=== PATIENT | female | born 1955 | race Caucasian/White ===

== ENCOUNTER 2019-03-08 16:04 | Emergency (ER) | payer OTHER, SELFPAY ==
[2019-03-08 16:13] VITALS: BP 157/76; PULSE 83; RESP 18; TEMP 36.7; O2SAT 94; BMI 29.2
--- NOTE | 2019-03-08 16:13 | DI.RAD.S_ITS ---
PROCEDURE: XR CHEST 1V INDICATIONS: vomiting, DKA TECHNIQUE: One view of the chest was acquired. COMPARISON: [facility], , CHEST 1 VIEW, 08/19/2015, 23:18. FINDINGS: Surgical changes and devices: None. Lungs and pleura: An incomplete inspiratory result is noted, causing a crowded appearance to the lung markings. No focal infiltrates are seen. No pneumothorax or significant pleural effusions are seen. Mediastinum: Mediastinal contours appear normal. Heart size is normal. Bones and chest wall: Age-appropriate bony degenerative changes are seen. No suspicious bony lesions. Overlying soft tissues appear unremarkable. IMPRESSION: Limited portable chest examination, without a significant cardiopulmonary abnormality identified. Dictated by: Cory Caruso M.D. on 03/08/2019 at 16:05 Approved by: Cory Caruso M.D. on 03/08/2019 at 16:06
[2019-03-08 16:28] LABS: Add Manual Diff / Slide Review NO; Basophils Absolute Auto 0 /uL (0-100); Basophils Percent Auto 0.6 % (0-2); Eosinophils Absolute Auto 100 /uL (0-450); Eosinophils Percent Auto 1.7 % (2-4); Hematocrit 39.5 % (36-46); Lymphocytes Absolute Auto 1500 /uL (1100-4500); Lymphocytes Percent Auto 19.4 % (25-40); Mean Corpuscular Hemoglobin 28.1 PG (26-34); Mean Corpuscular Volume 85.2 fL (80-100); Monocytes Absolute Auto 500 /uL (0-900); Monocytes Percent Auto 6.3 % (3-14); Neutrophils Absolute Auto 5400 /uL (1500-7000); Platelet Count 381 X10^3/uL (150-400); Red Blood Cell Count 4.63 X10^6/uL (4.0-5.2); White Blood Cell Count 7.5 X10^3/uL (4.5-11.0)
[2019-03-08 16:33] LABS: HEMOLYSIS < 15 (0-50)
[2019-03-08 16:38] LABS: Alanine Aminotransferase 23 IU/L (9-52); Albumin 4.3 g/dL (3.5-5.0); Albumin Globulin Ratio 1.3 (1.0-2.8); Alkaline Phosphatase 106 U/L (38-126); Aspartate Aminotransferase 18 IU/L (14-36); Bilirubin Total 0.4 mg/dL (0.2-1.3); Blood Urea Nitrogen 30 mg/dL (7-17); Calcium 9.4 mg/dL (8.4-10.2); Carbon Dioxide 24 mmol/L (22-32); Chloride 104 mmol/L (98-107); Estimated Glomerular Filt Rate 56.4 mL/min (>60); Globulin 3.3 g/dL (1.7-4.1); Glucose 234 mg/dL (80-110); Potassium 4.5 mmol/L (3.4-5.1); Sodium 139 mmol/L (137-145); Total Protein 7.6 g/dL (6.3-8.2)
[2019-03-08] MEDS: METOCLOPRAMIDE 10 MG/2 ML INJ IV (16:39)
[2019-03-08] MEDS: SODIUM CHLORIDE 0.9% 1,000 ML 1000 ML IV (16:41)
[2019-03-08 16:45] LABS: Ketones (Beta-Hydroxybutyrate) 0.43 mmol/L (<0.27)
[2019-03-08 16:54] LABS: Lactate (Lactic Acid) 0.9 mmol/L (0.7-2.1)
[2019-03-08 16:57] LABS: Procalcitonin < 0.05 ng/mL (<0.5)
[2019-03-08 17:17] VITALS: BP 152/78; PULSE 108; RESP 22; O2SAT 98
--- NOTE | 2019-03-08 17:18 | PC.NURSE ---
pt extremely anxious. reports she just took a paxil. states that she is hypoglycemic. Blood glucose is 222. Dr. Mcleod aware.
--- NOTE | 2019-03-08 17:39 | ED_ITS ---
HPI - General Adult General Chief complaint: Diabetic Problem Stated complaint: says she can not control her sugars Time Seen by Provider: 03/08/19 16:06 Source: patient and family Mode of arrival: ambulatory Limitations: no limitations History of Present Illness HPI narrative: 63-year-old female nonsmoking diabetic presents with a chief complaint that she is very frustrated and anxious that she cannot control her blood sugars. She states that they have been working on this at her primary care office and that her sugars are still in the 200s. She denies much in the way of symptoms but states that when she notes her numbers are high she gets very anxious and sometimes this gets her a bit ?spun up ?she at times feels short of breath and lightheaded which tends to resolve with focus on her breathing. She denies abdominal pain or nausea or vomiting. Onset (ago): day(s) Associated symptoms: denies other symptoms Related Data Allergies Allergy/AdvReac Type Severity Reaction Status Date / Time No Known Drug Allergies Allergy Verified 03/08/19 16:17 Review of Systems Constitutional Denies chills, Denies fever(s), Denies lethargy and Denies weakness Eyes Denies change in vision, Denies eye discharge, Denies irritation and Denies loss of vision ENT Ears, Nose, Mouth, and Throat: Denies change in voice, Denies neck pain and Denies sore throat Cardiovascular Denies chest pain, Denies irregular heart rhythm, Denies lightheadedness, Denies palpitations, Denies dyspnea, Denies dyspnea on exertion and Denies orthopnea Respiratory Denies cough, Denies dyspnea, Denies dyspnea on exertion and Denies wheezing Gastrointestinal Gastrointestinal: Denies abdominal pain, Denies change in bowel habits, Denies diarrhea, Denies nausea and Denies vomiting Genitourinary Denies hematuria, Denies flank pain, Denies urinary incontinence and Denies urinary urgency Musculoskeletal Denies neck pain Integumentary/Breasts Denies pruritus, Denies erythema, Denies rash and Denies wounds Neurologic Denies confusion, Denies loss of vision and Denies weakness Psychiatric Denies anxiety, Denies confusion, Denies depression, Denies homicidal ideation and Denies suicidal ideation Endocrine Denies palpitations Hematologic/Lymphatic Denies easy bruising Allergic/Immunologic Denies wheezing PFSH Social History Smoking Status: Never smoker Social History (Reviewed 03/08/19 @ 20:12 by PURVI Wang Smoking Status: Never smoker Exam Narrative Exam Narrative: GENERAL: 63-year-old female alert oriented x3, anxious HEAD: Atraumatic. Normocephalic. No temporal or scalp tenderness. EYES: Pupils equal round and reactive. Extraocular motions intact. No scleral icterus. No injection or drainage. ENT: Nose without bleeding, purulent drainage or septal hematoma. Throat without erythema, tonsillar hypertrophy or exudate. Uvula midline. Airway patent. NECK: Trachea midline. No JVD or lymphadenopathy. Supple, nontender, no meningeal signs. CARDIOVASCULAR: Regular rate and rhythm without murmurs, gallops, or rubs. RESPIRATORY: Clear to auscultation. Breath sounds equal bilaterally. No wheezes, rales, or rhonchi. GASTROINTESTINAL: Abdomen soft, non-tender, nondistended. No hepato-splenome nan, or palpable masses. No guarding. EXTREMITIES: No clubbing, cyanosis, or edema. No joint tenderness, effusion, or edema noted. BACK: Nontender without deformity or crepitance. No flank tenderness. NEURO: AOx3. SKIN: No rash or erythema. Initial Vital Signs Initial Vital Signs: Vital Signs Temperature 98.1 F 03/08/19 16:13 Pulse Rate 83 03/08/19 16:13 Respiratory Rate 18 03/08/19 16:13 Blood Pressure 157/76 H 03/08/19 16:13 Pulse Oximetry 94 03/08/19 16:13 Course Orders Ordered: ED Orders 03/08/19 16:13 XR chest 1V Stat 03/08/19 16:15 Complete Blood Count AUTO DIFF Stat Comprehensive Metabolic Panel Stat Ketones (Beta-Hydroxybutyrate) Stat Procalcitonin Stat 03/08/19 16:22 Venous Blood Gas Stat 03/08/19 16:30 Lactate (Lactic Acid) Stat 03/08/19 16:31 EKG-12 Lead Stat 03/08/19 16:45 Blood Culture Stat Discontinued Medications Sodium Chloride (Normal Saline 0.9%) 1,000 mls @ 1,000 mls/hr IV BOLUS ONE Stop: 03/08/19 17:11 Last Infusion: 03/08/19 18:06 Dose: 0 mls/hr Admin: 03/08/19 16:41 Dose: 1,000 mls/hr Metoclopramide HCl (Reglan) 10 mg IV NOW ONE Stop: 03/08/19 16:13 Last Admin: 03/08/19 16:39 Dose: 10 mg Vital Signs - 8 hr 03/08/19 16:13 03/08/19 17:17 Temperature 98.1 F Pulse Rate 83 108 H Respiratory Rate 18 22 Blood Pressure 157/76 H Blood Pressure [Left Arm] 152/78 H Pulse Oximetry 94 98 Medical Decision Making Lab Data Result diagrams: 03/08/19 16:15 03/08/19 16:15 Lab Results 03/08/19 03/08/19 03/08/19 Range/Units 16:15 16:15 16:15 WBC 7.5 (4.5-11.0) X10^3/uL RBC 4.63 (4.0-5.2) X10^6/uL Hgb 13.0 (12.0-16.0) g/dL Hct 39.5 (36-46) % MCV 85.2 (80-100) fL MCH 28.1 (26-34) PG MCHC 33.0 (30-36) % RDW 14.0 (11.6-14.8) % Plt Count 381 (150-400) X10^3/uL Neut % (Auto) 72.0 (50-75) % Lymph % (Auto) 19.4 L (25-40) % [place] % (Auto) 6.3 (3-14) % Eos % (Auto) 1.7 L (2-4) % Baso % (Auto) 0.6 (0-2) % Neut # (Auto) 5400 (3139-2779) /uL Lymph # (Auto) 1500 (2065-1409) /uL [place] # (Auto) 500 (0-900) /uL Eos # (Auto) 100 (0-450) /uL Baso # (Auto) 0 (0-100) /uL VBG pH (7.33-7.43) VBG pCO2 (45-50) mmHg VBG pO2 (35-45) mmHg VBG HCO3 (23-28) mmol/L VBG Total CO2 (24-29) mmol/L VBG O2 Saturation (70-75) % VBG Base Excess (0-4) mmol/L Sodium 139 (137-145) mmol/L Potassium 4.5 (3.4-5.1) mmol/L Chloride 104 (98-107) mmol/L Carbon Dioxide 24 (22-32) mmol/L BUN 30 H (7-17) mg/dL Creatinine 1.00 (0.52-1.04) mg/dL Estimated GFR 56.4 L (>60) mL/min BUN/Creatinine Ratio 30.0 H (6-22) Glucose 234 H (80-110) mg/dL Lactate (0.7-2.1) mmol/L Calcium 9.4 (8.4-10.2) mg/dL Total Bilirubin 0.4 (0.2-1.3) mg/dL AST 18 (14-36) IU/L ALT 23 (9-52) IU/L Alkaline Phosphatase 106 (38-126) U/L Total Protein 7.6 (6.3-8.2) g/dL Albumin 4.3 (3.5-5.0) g/dL Globulin 3.3 (1.7-4.1) g/dL Albumin/Globulin Ratio 1.3 (1.0-2.8) Procalcitonin < 0.05 (<0.5) ng/mL Ketones 0.43 H (<0.27) mmol/L 03/08/19 03/08/19 Range/Units 16:22 16:30 WBC (4.5-11.0) X10^3/uL RBC (4.0-5.2) X10^6/uL Hgb (12.0-16.0) g/dL Hct (36-46) % MCV (80-100) fL MCH (26-34) PG MCHC (30-36) % RDW (11.6-14.8) % Plt Count (150-400) X10^3/uL Neut % (Auto) (50-75) % Lymph % (Auto) (25-40) % [place] % (Auto) (3-14) % Eos % (Auto) (2-4) % Baso % (Auto) (0-2) % Neut # (Auto) (9771-5316) /uL Lymph # (Auto) (8158-4466) /uL [place] # (Auto) (0-900) /uL Eos # (Auto) (0-450) /uL Baso # (Auto) (0-100) /uL VBG pH 7.39 (7.33-7.43) VBG pCO2 36.5 L (45-50) mmHg VBG pO2 29 L (35-45) mmHg VBG HCO3 22 L (23-28) mmol/L VBG Total CO2 23 L (24-29) mmol/L VBG O2 Saturation 54 L (70-75) % VBG Base Excess -3.0 L (0-4) mmol/L Sodium (137-145) mmol/L Potassium (3.4-5.1) mmol/L Chloride (98-107) mmol/L Carbon Dioxide (22-32) mmol/L BUN (7-17) mg/dL Creatinine (0.52-1.04) mg/dL Estimated GFR (>60) mL/min BUN/Creatinine Ratio (6-22) Glucose (80-110) mg/dL Lactate 0.9 (0.7-2.1) mmol/L Calcium (8.4-10.2) mg/dL Total Bilirubin (0.2-1.3) mg/dL AST (14-36) IU/L ALT (9-52) IU/L Alkaline Phosphatase (38-126) U/L Total Protein (6.3-8.2) g/dL Albumin (3.5-5.0) g/dL Globulin (1.7-4.1) g/dL Albumin/Globulin Ratio (1.0-2.8) Procalcitonin (<0.5) ng/mL Ketones (<0.27) mmol/L Point of Care Testing Glucose POC 222 Urine Dip Bedside Urine Glucose 1000 mg/dl Bedside Urine Bilirubin - Negative Bedside Urine Ketone - Negative Urine Specific [place] 1.020 Bedside Urine Occult Blood - Negative Bedside Urine pH 5.5 Bedside Urine Protein +/- 15 Bedside Urine Urobilinogen - Negative Bedside Urine Nitrite - Negative Bedside Urine Leukocytes - Negative Esterase Point of care testing: Point of Care Testing Glucose POC 222 Urine Dip Bedside Urine Glucose 1000 mg/dl Bedside Urine Bilirubin - Negative Bedside Urine Ketone - Negative Urine Specific [place] 1.020 Bedside Urine Occult Blood - Negative Bedside Urine pH 5.5 Bedside Urine Protein +/- 15 Bedside Urine Urobilinogen - Negative Bedside Urine Nitrite - Negative Bedside Urine Leukocytes - Negative Esterase MDM Narrative Medical decision making narrative: 63-year-old female with diabetes presents with report of elevated glucose. She has a very reassuring exam and lab work was discussed with her at length. She is a bit hyperglycemic but I explained to her and that the emergency department typically does not alter her diabetic regimen except during extreme cases. I assured her there is no significant lab abnormality that would require admission or immediate intervention. She has been given return precautions Discharge Plan Departure Patient Disposition: Home Clinical Impression: Acute hyperglycemia Discharge Date/Time: 03/08/19 18:26 Interventions: ED Discharge Assessment Last Done: 03/08/19 18:26 Instructions: DI for Hyperglycemia -- Adult Activity Restrictions/Additional Instructions: *You have been diagnosed with [acute hyperglycemia] *What to do: * continue to take medications as directed *Follow up with your primary care provider in 2-3 days, call for an appointment. Let them know you were seen in the Emergency Department and that we ask that you be seen in follow up *Return to ER if you should have any new, worsening or concerning symptoms
[2019-03-08 17:40] LABS: HCO3 VBG 22 mmol/L (23-28); PCO2 VBG 36.5 mmHg (45-50); PO2 VBG 29 mmHg (35-45); Total CO2 VBG 23 mmol/L (24-29); pH VBG 7.39 (7.33-7.43)
[2019-03-08 17:41] LABS: Oxygen Saturation VBG 54 % (70-75)
== END 2019-03-08 18:26 | disposition home or self-care (01) ==
PROVIDERS: Emergency Provider Emergency Medicine
DX: R73.9 Hyperglycemia, unspecified (principal); R06.02 Shortness of breath; R03.0 Elevated blood-pressure reading, without diagnosis of hypertension
CPT/HCPCS: 36591; 71045; 80053; 81003; 82009; 82805; 82962; 83605; 84145; 85025; 87040; 93005; 96361; 96374; 99283; 99285; J2765